=== PATIENT | male | born 2000 | race Caucasian/White ===

== ENCOUNTER 2021-08-12 16:35 | Emergency (ER) | payer OTHER, SELFPAY ==
--- NOTE | ~2021-08-12 | XR_ITS ---
EXAMINATION: X-RAY LEFT ANKLE X-RAY LEFT FOOT CLINICAL INFORMATION: Left lower extremity injury. COMPARISON: No similar priors. TECHNIQUE: 2 views of the left ankle and 3 views of the left foot were obtained. FINDINGS: Left ankle: Mild soft tissue edema without evidence of radiopaque foreign bodies. No acute fractures or malalignment. The ankle mortise is congruent. Left foot: No evidence of acute fractures or malalignment. No joint effusion. No radiopaque foreign bodies. XR/XR foot LT 2V IMPRESSION: Mild soft tissue edema in the left ankle. No acute fractures or malalignment in the left foot nor left ankle.
--- NOTE | ~2021-08-12 | XR_ITS ---
EXAMINATION: X-RAY LEFT ANKLE X-RAY LEFT FOOT CLINICAL INFORMATION: Left lower extremity injury. COMPARISON: No similar priors. TECHNIQUE: 2 views of the left ankle and 3 views of the left foot were obtained. FINDINGS: Left ankle: Mild soft tissue edema without evidence of radiopaque foreign bodies. No acute fractures or malalignment. The ankle mortise is congruent. Left foot: No evidence of acute fractures or malalignment. No joint effusion. No radiopaque foreign bodies. XR/XR ankle LT min 3V IMPRESSION: Mild soft tissue edema in the left ankle. No acute fractures or malalignment in the left foot nor left ankle.
[2021-08-12 17:58] VITALS: BP 153/69; PULSE 77; RESP 18; O2SAT 96; BMI 28.1
--- NOTE | 2021-08-12 19:08 | ED_ITS ---
HPI - Extremity Injury (Lower) General Chief Complaint: Extremity Injury, Lower Stated Complaint: Ankle injury Source: patient Mode of arrival: ambulatory Limitations: no limitations History of Present Illness HPI Narrative: 21-year-old male presents with left ankle pain, bruising and swelling after he missed a step and twisted his left ankle and foot. He did hear a pop and is unable to bear weight. He does not report any other injuries from this incident. MD complaint: ankle injury and foot injury Onset (ago): hour(s) (Within the hour of arrival) Type of Injury: inversion Place: home Severity: moderate Severity scale (1-10): 8 Relieving factors: cold therapy and immobilization Exacerbating factors: weight bearing, movement and palpation Context: walking Associated symptoms: snap/pop sensation, swelling and unable to bear weight Other symptoms: none Treatments prior to arrival: cold therapy Related Data Previous Rx's Medication Instructions Recorded ibuprofen 600 mg tablet 600 mg PO Q6H PRN #60 tab 08/12/21 Allergies Allergy/AdvReac Type Severity Reaction Status Date / Time No Known Allergies Allergy Verified 08/12/21 17:57 Review of Systems Review of Systems: Constitutional: No Fever, No Chills ENT/Mouth: No Ear Pain, No Hoarseness, No sore throat Eyes: No Eye Pain, No Swelling, No Redness, No Foreign Body Cardiovascular: No Chest Pain, No SOB Respiratory: No Cough, No Dyspnea Gastrointestinal: No Nausea, No Vomiting, No Diarrhea, No abdominal Pain Genitourinary: No Dysuria, No Hematuria Musculoskeletal: positive left ankle pain, bruising and swelling, No Myalgias, No Joint Swelling Skin: No Skin lacerations, No rash Neuro: No Weakness, No Numbness, No Paresthesias, No Loss of Consciousness, No D izziness, No Headache Psych: No Anxiety/Panic, No Depression Heme/Lymph: no easy bruising, no Lymphadenopathy Endocrine: No Polyuria, No Polydipsia Yes all other systems are reviewed and are negative PENDING SALE TO [facility] Past Medical History Attestation statement: The following information was validated with the patient. Source: old records reviewed Medical History ADHD Social History Social History Advance Directives: No Advance Directives Information Provided: No Physical Exam Vital Signs: Vital Signs: Last Vital Signs Pulse 77 08/12/21 17:58 Resp 18 08/12/21 17:58 BP 153/69 H 08/12/21 17:58 Pulse Ox 96 08/12/21 17:58 Body Mass Index 28.1 Appearance: Alert. Oriented X3. Mild distress. Eyes: Pupils equal, round and reactive to light. Sclera nonicteric. ENT: Pharynx normal. Neck: Normal inspection. Neck supple. CVS: Normal heart rate and rhythm. Pulses normal. Respiratory: No respiratory distress. Breath sounds normal. Abdomen: Soft and nontender. Skin: Skin warm and dry. Normal skin color. Normal skin turgor. Extremities: Decreased flexion, extension, internal and external rotation to the left ankle and foot. Strength 5/5. Tenderness to the lateral malleolar process with bruising. Brisk capillary refill. Neuro: No motor deficit. No sensory deficit. Cranial nerves 2-12 intact. Course Course Course Narrative: 21-year-old male presents with left ankle injury after stepping improperly on a step. Has some bruising and swelling and tenderness to left malleolar process. Will order x-rays. X-rays negative for acute findings. Suspicion for grade 2 strain-sprain. Will give Thaddeus wrap, air cast, and crutches and have patient follow-up with Orthopedi cs. Treated with Motrin for pain management. Patient does continue to have brisk capillary refill, equal pedal pulses, and is neurovascularly intact. Patient verbalized understanding of and agrees to plan of care discharge home. MDM - Extremity Injury (Lower) Differential Diagnosis Differential diagnosis: Likely ankle sprain and strain and ankle fracture Medical Records Attestation: I reviewed the patient's medical records. Imaging Data Left foot ankle x-ray: Attestation: I personally reviewed and interpreted this imaging study as follows: Radiologist's impression: EXAMINATION: X-RAY LEFT ANKLE X-RAY LEFT FOOT CLINICAL INFORMATION: Left lower extremity injury.? COMPARISON: No similar priors.? TECHNIQUE: 2 views of the left ankle and 3 views of the left foot were obtained.? FINDINGS: Left ankle: Mild soft tissue edema without evidence of radiopaque foreign bodies. No acute fractures or malalignment. The ankle mortise is congruent. Left foot: No evidence of acute fractures or malalignment. No joint effusion. No radiopaque foreign bodies.? XR/XR foot LT 2V IMPRESSION: Mild soft tissue edema in the left ankle. ? No acute fractures or malalignment in the left foot nor left ankle.? Discharge Plan Discharge Clinical Impression: Ankle sprain and strain Patient Disposition: Home, Self-Care Instructions: Ankle Sprain (ED), Crutch Instructions (ED), Ankle Stirrup Splint (ED), R.I.C.E. Treatment (ED) Additional Instructions: You were evaluated for left ankle injury. X-rays are negative for fracture however your injuries are consistent with a grade 2 sprain. Please follow-up with orthopedics. Please call and request an appointment. Please keep Thaddeus wrap and ankle splint in place. You may remove them to shower. You may bear weight as tolerated. Thank you for choosing this emergency department for evaluation. Please follow-up with primary care physician as needed. Return to the emergency department for any new, concerning, or worsening symptoms. Prescriptions: New ibuprofen 600 mg tablet 600 mg PO Q6H PRN (Reason: pain) Qty: 60 RF: 0 Referrals: Eloisa Beltran PA-C [[facility] Nurse] - 2 days (Suspected Left grade 2 ankle sprain) Interventions: ED Discharge Assessment Last Done: 08/12/21 20:33 Discharge Date/Time: 08/12/21 20:41
[2021-08-12] MEDS: Ibuprofen 600 MG TABLET PO (19:42)
== END 2021-08-12 20:41 | disposition home or self-care (01) ==
PROVIDERS: Emergency Provider Emergency Medicine
DX: S93.402A Sprain of unspecified ligament of left ankle, initial encounter (principal); M25.572 Pain in left ankle and joints of left foot; X50.1XXA Overexertion from prolonged static or awkward postures, initial encounter; Y93.9 Activity, unspecified; Y92.9 Unspecified place or not applicable; Y99.9 Unspecified external cause status
CPT/HCPCS: 29515; 73610; 73620; 99283; 99284